=== PATIENT | female | born 2000 | race Caucasian/White ===

== ENCOUNTER 2022-09-12 13:02 | Outpatient (REF) | payer OTHER, SELFPAY ==
[2022-09-12 13:30] LABS: Basophils Absolute Auto 0.02 K/uL (0.00-0.30); Basophils Percent Auto 0.3 % (0.0-3.0); Eosinophils Absolute Auto 0.06 K/uL (0.00-0.50); Eosinophils Percent Auto 0.9 % (0.0-7.0); Hematocrit 39.9 % (33.0-51.0); Hemoglobin* 12.6 gm/dL (12.0-16.0); Immature Granulocytes Abs Auto 0.01 K/uL (0.00-0.30); Immature Granulocytes Pct Auto 0.1 %; Lymphocytes Absolute Auto 1.95 K/uL (0.90-2.90); Lymphocytes Percent Auto 28.2 % (20-44); Mean Corpuscular HGB Conc 32 gm/dL (32-36); Mean Corpuscular Hemoglobin 29 pg (26-34); Mean Corpuscular Volume 92 fL (80-100); Monocytes Percent Auto 6.8 % (0.0-11.0); Neutrophils Absolute Auto 4.41 K/uL (1.7-7.0); Neutrophils Percent Auto 63.7 % (42.0-72.0); Platelet Count* 365 K/uL (140-440); Red Blood Count 4.33 m/uL (4.00-5.20); White Blood Count* 6.92 K/uL (4.50-11.00)
[2022-09-12 13:39] LABS: Slide Review Reflex No
[2022-09-12 14:03] LABS: Albumin* 4.7 g/dL (3.3-5.0)
[2022-09-12 14:06] LABS: Alanine Aminotransferase* 12 U/L (4-35)
[2022-09-12 14:33] LABS: Iron* 55 ug/dL (37-170)
[2022-09-12 14:42] LABS: Percent Iron Saturation 13 % (20-50); Total Iron Binding Capacity 428 ug/dL (265-497)
[2022-09-12 14:43] LABS: Ferritin* 16.1 ng/mL (6.24-137.0)
[2022-09-12 14:49] LABS: Erythrocyte SedimentationRate* 13 mm/hr (2-20)
[2022-09-12 14:56] LABS: Vitamin B12* 485 pg/mL (243-894)
[2022-09-14 16:36] LABS: 25-Hydroxyvitamin D2 2.7 ng/mL; 25-Hydroxyvitamin D2,D3 Total 14.1 ng/mL (30.0-80.0); 25-Hydroxyvitamin D3 11.4 ng/mL
[2022-09-15 03:27] LABS: Folate, Serum 17.6 ng/mL (>=5.9)
== END 2022-09-12 13:03 | disposition home or self-care (01) ==
LOC: LAB 13:02
DX: K50.90 Crohn's disease, unspecified, without complications (principal)
CPT/HCPCS: 36415; 82040; 82306; 82607; 82728; 82746; 83540; 83550; 84460; 85025; 85651